=== PATIENT | male | born 1985 | race Asian ===

== ENCOUNTER → 2018-05-05 | Outpatient (CLI) | payer BC | LOC: COL.RAD 09:45 | DX: B18.1 Chronic viral hepatitis B without delta-agent (principal) ==

== ENCOUNTER → 2018-12-02 | Outpatient (CLI) | payer BC | LOC: COL.RAD 10:30 | DX: B18.1 Chronic viral hepatitis B without delta-agent (principal) ==

== ENCOUNTER → 2019-07-24 | Outpatient (CLI) | payer BC | LOC: COL.RAD 07:30 | DX: B18.1 Chronic viral hepatitis B without delta-agent (principal) ==

== ENCOUNTER → 2020-07-08 | Outpatient (CLI) | payer BC | LOC: COL.RAD 07-03 08:15 | DX: N13.30 Unspecified hydronephrosis (principal); B18.1 Chronic viral hepatitis B without delta-agent ==

== ENCOUNTER → 2021-01-07 | Outpatient (CLI) | payer BC | LOC: COL.RAD 08:15 | DX: N13.30 Unspecified hydronephrosis (principal); Z96.0 Presence of urogenital implants ==

== ENCOUNTER → 2021-07-04 | Outpatient (CLI) | payer BC | LOC: COL.RAD 08:15 | DX: B18.1 Chronic viral hepatitis B without delta-agent (principal) ==